=== PATIENT | male | born 1965 | race African-American/Black ===

== ENCOUNTER 2016-09-18 09:39 | Emergency (ER) | payer MEDICARE, MEDICAID ==
[~2016-09-18] VITALS: Ht 172.7 cm; Wt 95.5 kg
[~2016-09-18 09:39] MED LIST: ABILIFY 10MG TA10 MG PO; ABILIFY20 MG; AMOXICILLIN 50500 MG PO; AMOXICILLIN 8751 TAB PO; CEPHALEXIN500 M1 PO; CIPRO 500MG TA500 MG PO; CIPRO HC OTIC S10 ML OT; CIPRO500 MG PO; ESCITALOPRAM; FLEXERIL 1010 MG/TAB PO; FLOMAX 0.40.4 MG/CAP PO; LEXAPRO 5MG5 MG; LORTAB 5/500 501 TAB PO; NAPROSYN500 MG PO; NO HOME MEDICATIONS; NORCO 325 MG-51 TAB PO; NORCO 325 MG-7.1 TAB PO; PEN-VEE K500 MG PO; PERCOCET 325 MG1 TA2 PO; PREDNISONE20 MG PO; PROVENTIL0.09 MG/A1 IH; SEROQUEL; SEROQUEL 1100 MG/TAB; TRIAMCINOLONE A15 GM TP; VICODIN 5/5001 UDTAB PO; ZOFRAN 4MG T4 MG/TAB PO
[2016-09-18 09:42] VITALS: BP 140/88; PULSE 68; TEMP 97.7
[2016-09-18] MEDS ORDERED: AMOXICILLIN 50500 MG PO (09:57)
[2016-09-18] MEDS ORDERED: NORCO 325 MG-51 TAB PO (09:57)
== END 2016-09-18 10:08 | disposition home or self-care (01) ==
LOC: COL.ER 09:39
DX: K08.89 Other specified disorders of teeth and supporting structures (principal); F17.210 Nicotine dependence, cigarettes, uncomplicated

== ENCOUNTER 2016-12-07 07:35 | Emergency (ER) | payer MEDICARE, MEDICAID ==
[~2016-12-07] VITALS: Ht 170.2 cm; Wt 96.4 kg
[2016-12-07 07:51] VITALS: BP 140/75; PULSE 62; TEMP 97.5
[2016-12-07] MEDS ORDERED: CLEOCIN HCL300 MG PO (08:32)
[2016-12-07] MEDS ORDERED: NORCO 325 MG-51 TAB PO (08:32)
== END 2016-12-07 08:48 | disposition home or self-care (01) ==
LOC: COL.ER 07:35
DX: K08.89 Other specified disorders of teeth and supporting structures (principal); K06.9 Disorder of gingiva and edentulous alveolar ridge, unspecified; I10 Essential (primary) hypertension; F17.210 Nicotine dependence, cigarettes, uncomplicated

== ENCOUNTER 2017-04-07 08:27 | Emergency (ER) | payer MEDICARE, MEDICAID ==
[~2017-04-07] VITALS: Ht 170.2 cm; Wt 95.5 kg
[~2017-04-07 08:27] MED LIST changes: +CLEOCIN HCL300 MG PO
[2017-04-07 08:30] VITALS: BP 133/85; TEMP 97.9
[2017-04-07 09:09] LABS: BASO % 0.3 % (0.0-2.0); EOS # 0.2 (0.0-0.7); EOS % 1.6 % (0-4.0); GRAN # 6.8 (1.4-6.5); GRAN % 69.7 % (42.2-75.2); HEMATOCRIT 44.5 % (42.0-52.0); HEMOGLOBIN 14.4 g/dl (13.5-18.0); LYMPH # 2.2 (1.2-3.4); MEAN CELL VOLUME 78 fl (80.0-100.0); MEAN CORPUSCULAR HEMOGLOBIN 25 pg (27.0-31.0); MEAN CORPUSCULAR HGB CONC 32 g/dl (33.0-37.0); MEAN PLATELET VOLUME 11.2 fl (7.4-10.4); MONO # 0.6 (0.1-0.6); MONO % 6.3 % (1.7-9.3); PLATELET COUNT 275 K/mm3 (130-400); RED BLOOD COUNT 5.69 M/mm3 (4.20-5.60); REDCELL DISTRIBUTION WIDTH-CV 15.1 % (11.5-14.5); WHITE BLOOD COUNT 9.8 K/mm3 (4.8-10.8)
[2017-04-07 09:34] LABS: ADJUSTED CALCIUM 9.1 mg/dL (8.4-10.2); ALANINE AMINOTRANSFERASE 31 U/L (21-72); ALBUMIN 3.8 gm/dL (3.5-5.0); ALKALINE PHOSPHATASE 60 U/L (50-136); ANION GAP 8 mmol/L (7-16); BLOOD UREA NITROGEN 13 mg/dL (9-20); CALCIUM 8.9 mg/dL (8.4-10.2); CARBON DIOXIDE 23 mmol/L (22-30); CHLORIDE 109 mmol/L (98-107); CREATININE, serum 0.93 mg/dL (0.66-1.25); GLUCOSE 138 mg/dL (74-106); POTASSIUM 3.7 mmol/L (3.4-5.0); SODIUM 140 mmol/L (137-145); TOTAL PROTEIN 6.6 gm/dL (6.4-8.2)
[2017-04-07 09:52] LABS: B-TYPE NATRIURETIC PEPTIDE < 11 pg/mL (0-125); TROPONIN-I < 0.012 ng/mL (0.000-0.034)
[2017-04-07] MEDS ORDERED: PROAIR HFA0.09 MG/AC IH (10:05)
[2017-04-07] MEDS ORDERED: PREDNISONE20 MG PO (10:05)
[2017-04-07 11:18] VITALS: PULSE 96
== END 2017-04-07 11:18 | disposition home or self-care (01) ==
LOC: COL.ER 08:27
PROVIDERS: Emergency Medicine
DX: J44.1 Chronic obstructive pulmonary disease with (acute) exacerbation (principal); J20.9 Acute bronchitis, unspecified; Z87.891 Personal history of nicotine dependence
CPT/HCPCS: J7512

== ENCOUNTER 2017-04-13 09:30 | Emergency (ER) | payer MEDICARE, MEDICAID ==
[~2017-04-13] VITALS: Ht 170.2 cm; Wt 95.5 kg
[~2017-04-13 09:30] MED LIST changes: +PROAIR HFA0.09 MG/AC IH
[2017-04-13 09:51] VITALS: BP 136/76; TEMP 97.2
[2017-04-13 12:38] VITALS: PULSE 76
[2017-04-14] MEDS ORDERED: NORCO 325 MG-51 TAB PO (09:46)
== END 2017-04-13 12:38 | disposition home or self-care (01) ==
LOC: COL.ER 09:30
DX: S50.11XA Contusion of right forearm, initial encounter (principal); Z23 Encounter for immunization; W13.8XXA Fall from, out of or through other building or structure, initial encounter; Y92.008 Other place in unspecified non-institutional (private) residence as the place of occurrence of the external cause
CPT/HCPCS: J2270; J2550

== ENCOUNTER 2017-04-14 09:19 | Emergency (ER) | payer MEDICARE, MEDICAID ==
[~2017-04-14] VITALS: Ht 170.2 cm; Wt 95.5 kg
[2017-04-14 09:23] VITALS: BP 141/69; PULSE 84; TEMP 97.1
[2017-04-14] MEDS ORDERED: NORCO 325 MG-51 TAB PO (09:46)
== END 2017-04-14 10:24 | disposition home or self-care (01) ==
LOC: COL.ER 09:19
DX: S50.11XA Contusion of right forearm, initial encounter (principal); W17.89XA Other fall from one level to another, initial encounter; Y92.009 Unspecified place in unspecified non-institutional (private) residence as the place of occurrence of the external cause

== ENCOUNTER 2017-04-20 02:32 | Emergency (ER) | payer MEDICARE, MEDICAID ==
[~2017-04-20] VITALS: Ht 170.2 cm; Wt 95.5 kg
[2017-04-20 02:35] VITALS: TEMP 98
[2017-04-20] MEDS ORDERED: NORCO 325 MG-51 TAB PO (03:15)
[2017-04-20 04:21] VITALS: BP 146/82; PULSE 81
== END 2017-04-20 04:21 | disposition home or self-care (01) ==
LOC: COL.ER 02:32
DX: S50.11XA Contusion of right forearm, initial encounter (principal); W17.89XA Other fall from one level to another, initial encounter
CPT/HCPCS: J1885

== ENCOUNTER 2019-07-08 13:37 | Emergency (ER) | payer MEDICARE, MEDICAID ==
[~2019-07-08] VITALS: Ht 170.2 cm; Wt 93.2 kg
[2019-07-08] MEDS ORDERED: CIPRO 500MG TA500 MG PO (14:25)
[2019-07-08 14:28] LABS: BASO % 0.3 % (0.0-2.0); EOS # 0.2 (0.0-0.7); GRAN # 7.7 (1.4-6.5); GRAN % 65.2 % (42.2-75.2); HEMATOCRIT 42.6 % (42.0-52.0); HEMOGLOBIN 13.5 g/dl (13.5-18.0); LYMPH # 2.9 (1.2-3.4); LYMPH % 24.1 % (20.0-51.0); MEAN CELL VOLUME 80 fl (80.0-100.0); MEAN CORPUSCULAR HEMOGLOBIN 25 pg (27.0-31.0); MEAN CORPUSCULAR HGB CONC 32 g/dl (33.0-37.0); MEAN PLATELET VOLUME 10.3 fl (7.4-10.4); MONO % 8.1 % (1.7-9.3); PLATELET COUNT 308 K/mm3 (130-400); RED BLOOD COUNT 5.33 M/mm3 (4.20-5.60); REDCELL DISTRIBUTION WIDTH-CV 15.2 % (11.5-14.5)
[2019-07-08 14:40] LABS: ALANINE AMINOTRANSFERASE 26 U/L (21-72); ALBUMIN 3.6 gm/dL (3.5-5.0); ALKALINE PHOSPHATASE 68 U/L (50-136); ANION GAP 5 mmol/L (7-16); AST,SGOT 19 U/L (15-37); BILIRUBIN,TOTAL 0.4 mg/dL (0.0-1.0); BLOOD UREA NITROGEN 16 mg/dL (9-20); CALCIUM 8.7 mg/dL (8.4-10.2); CARBON DIOXIDE 31 mmol/L (22-30); CHLORIDE 105 mmol/L (98-107); CREATININE, serum 1.34 (0.66-1.25); GLUCOSE 94 mg/dL (74-106); LIPASE 112 U/L (23-300); POTASSIUM 4.3 mmol/L (3.4-5.0); SODIUM 141 mmol/L (137-145); TOTAL PROTEIN 6.4 gm/dL (6.4-8.2)
[2019-07-08 14:44] LABS: C-REACTIVE PROTEIN < 0.5 mg/dL (0.0-0.9)
[2019-07-08 16:39] LABS: COLLECTION METHOD CLEAN CATCH
[2019-07-08 16:52] LABS: MUCOUS Present /lpf; PH 6 (5-8); SQUAMOUS EPITHELIAL 0-2 /hpf; URINE APPEARANCE Clear; URINE BACTERIA None Seen /hpf; URINE BILIRUBIN Negative (NEGATIVE); URINE BLOOD 3+ (NEGATIVE); URINE COLOR Yellow; URINE GLUCOSE Negative (NEGATIVE); URINE KETONE Negative (NEGATIVE); URINE LEUKOCYTE ESTERASE 3+ (NEGATIVE); URINE NITRATE Negative (NEGATIVE); URINE PROTEIN(semi-quant) 1+ (NEGATIVE); URINE RBC >50 /hpf; URINE UROBILINOGEN Negative (NEGATIVE)
[2019-07-08] MEDS ORDERED: NORCO 325 MG-51 TAB PO (17:32)
[2019-07-08] MEDS ORDERED: FLOMAX 0.40.4 MG/CAP PO (17:32)
[2019-07-08 17:54] VITALS: BP 130/84; PULSE 86; TEMP 98.4
== END 2019-07-08 17:55 | disposition home or self-care (01) ==
LOC: COL.ER 13:37
PROVIDERS: Emergency Medicine
DX: R10.9 Unspecified abdominal pain (principal); F17.210 Nicotine dependence, cigarettes, uncomplicated; Z87.442 Personal history of urinary calculi
CPT/HCPCS: J2270; J2405; J7030